=== PATIENT | male | born 2000 | race Hispanic/Latino ===

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

== ENCOUNTER 2022-11-09 23:03 | Emergency (ER) | payer MEDICAID, SELFPAY ==
[2022-11-09] MEDS ORDERED: Ketorolac Tromethamine 30 MG/ML VIAL ONE (23:23)
== END 2022-11-09 23:35 ==
LOC: ERS 23:03
DX: M26.601 Right temporomandibular joint disorder, unspecified (principal)
CPT/HCPCS: 96372; 99283; J1885